=== PATIENT | male | born 1930 | race Caucasian/White ===

== ENCOUNTER 2016-12-30 17:10 | Emergency (ER) | payer OTHER ==
[~2016-12-30] VITALS: Ht 188 cm; Wt 100.0 kg
[~2016-12-30 17:10] MED LIST: ALBU18HF INH; ASCO500T7 PO; ASPI325T32 PO; ATRV10T PO; BECL8.7A6 IH; CALC-721 PO; ERGO400C PO; FELO10TA3 PO; FLUT16SP2 NS; MULT-621 PO; OMEG1CAP5 PO; SILD100T PO; TRIA60LO3 TOP
[2016-12-30 17:36] VITALS: BP 127/75; PULSE 90; RESP 18; O2SAT 97
--- NOTE | 2016-12-30 18:45 | ED.REPORT ---
HPI-Abd Pain M Under 40 Date of Service Dec 30, 2016 ED Provider: Colin Kendrick DO Patient is an 86 year old male with a history of hypertension and a nephrectomy due to cancer who presents to the ED complaining of right upper quadrant abdominal pain. The patient reports a mass on the right side of his abdomen that has been there for a few months. He states that it is usually sore but has got progressively more painful today while mowing the lawn and describes the pain as a "burning". He denies vomiting or diarrhea. The patient reports that he saw his primary care physician earlier who recommended the patient come to the ED for a CT. Nursing Notes Stated Complaint: ABDOMINAL PAIN Chief Complaint: Male Abdominal Pain Nursing Notes Reviewed: Yes Allergies: Coded Allergies: lactose (Verified Adverse Reaction, Intermediate, LACTOSE INTOL, stomach ache, diarrhea, 12/18/13) Uncoded Allergies: Codeine (Allergy, Severe, N & V, 08/06/04) PHOSPHATE (Allergy, Severe, "loose total control of my body", 12/18/13) Sodium Phosphate (Allergy, Unknown, 05/25/04) Scheduled Ascorbic Acid (Vitamin C) 500 Mg Tab.chew 500 MG PO DAILY Aspirin (Aspirin) 325 Mg Tablet.dr 325 MG PO DAILY Atorvastatin (Lipitor) 10 Mg Tab 10 MG PO DAILY Beclomethasone Dipropionate (Qvar) 8.7 Gm Aer.w.adap 2 GM IH BID Calcium Carbonate/Vitamin D3 (Calcium 500 + D Tablet) 1 Each Tablet 1 EACH PO DAILY Cholecalciferol (Vitamin D3) (Vitamin D) 400 Unit Capsule 500 UNIT PO DAILY Felodipine ER (Felodipine ER) 10 Mg Tab.er.24h 10 MG PO DAILY Fluticasone Propionate (Flonase Nasal) 16 Gm [place].susp 1 SPRAY NS DAILY Multivitamin with Minerals (Multiple Vitamin) 1 Each Tablet 1 EACH PO DAILYWM [place]-3 Fatty Acids/Fish Oil (Fish Oil 1,000 mg Capsule) 1 Each Capsule 1 EACH PO DAILY Triamcinolone Acetonide (Triamcinolone Acetonide) 60 Ml Lotion 1 APPLIC TOP BID Scheduled PRN Albuterol Sulfate (Ventolin HFA Inhaler) 200 Puff/18 Gm Inhaler 2 PUFF INH Q4- 6H PRN PRN For Wheezing Sildenafil Citrate (Viagra) 100 Mg Tablet 100 MG PO UD PRN PRN sex General Time Seen by MD: 18:44 Chief Complaint Abdominal pain Hx Obtained From: Patient Arrived By: Walk-in Sudden in Onset?: Yes Onset Occurred: More than a week ago... (2 months) Symptom Duration: Since onset Progression since Onset: Gradually worsening Location: : RUQ Quality: Aching Radiation: : Does not radiate Severity: Current: Moderate Associated with: Denies: Diarrhea, Vomiting Recent Healthcare: No recent hospitalization, Recent doctor visit Similar Sx Previous: Yes Past Medical History Past Medical History 1. Hypertension. 2. Dyslipidemia. 3. Chronic hip and back pain. 4. History of left renal cell cancer, status post laparoscopic assisted nephrectomy in 2004. 5. History of Asthma with recurrent bronchitis in the past. 6. History of diverticulosis with episodes of diverticulitis in the past. 7. BPH 8. 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 Pneumonia Reports: Cancer Past Surgical History Left nephrectomy Shoulder repair Reports: Cholecystectomy, Inguinal hernia repair Family History non-contributory Smoking History Never Smoker Social History Alcohol Use: Denies alcohol use Drug Use: Denies drug use Other Social History: Good social support, Ambulatory Status Independent Review of Systems Constitutional: Denies: Chills Respiratory: Denies: Non-productive cough, Shortness of breath, Wheezing Cardiovascular: Denies: Chest pain GI: Reports: Abdominal pain, Denies: Constipation, Diarrhea, Nausea, Vomiting Complete sys rev & neg: except as marked. Physical Exam Initial Vital Signs Vital Signs (First) Date Time Temp Pulse Resp B/P Pulse Ox O2 Delivery O2 Flow Rate FiO2 12/30/16 17:36 36.2 90 18 127/75 97 12/30/16 20:41 Room Air Initial VS: Reviewed General/Constitutional: Awake, Alert Respiratory / Chest: Atraumatic, Breath sounds NL, Breath sounds = bilat, No respiratory distress Cardiovascular: Heart rate NL, Regular rhythm, Heart sounds NL Abdomen: Atraumatic, Soft Tenderness/Guarding/Rebound: Positive: Tender RUQ..., Tender epigastric Back: Atraumatic, Full range of motion Head / Eyes: Atraumatic, Normocephalic, PERRL, EOMI Neurologic: Oriented X3, Speech NL, No motor deficits, No sensory deficits Skin: Atraumatic, Color NL, No rash, Warm, Dry Psychiatric: Affect NL, Mood NL Interpretation & Diagnostics Lab Results Interpretation Result Diagram: 12/30/16 1900 12/30/16 2020 Test 12/30/16 17:52 12/30/16 19:00 12/30/16 20:20 12/30/16 22:38 Urine Color Yellow (YELLOW) Urine Appearance Clear (CLEAR,HAZY) Urine pH 6.0 (5.0-8.0) Urine Specific [place] 1.005 (1.003-1.035) Urine Protein Negativemg/dL (NEG,TRACE) Urine Glucose (UA) Negativemg/dL (NEGATIVE) Urine Ketones Negativemg/dL (NEGATIVE) Urine Occult Blood Negative (NEGATIVE) Urine Nitrite Negative (NEGATIVE) Urine Bilirubin Negative (NEGATIVE) Urine Urobilinogen Normalmg/dL (NORMAL) Urine Leukocyte Esterase Negative (NEGATIVE) Urine RBC 0-2/hpf (0-2) Urine WBC 0-5/hpf (0-5) Urine Epithelial Cells Occasional/hpf (NONE-MOD) Urine Crystals None seen (NONE SEEN) Urine Bacteria None/hpf (NONE-FEW) Urine Hyaline Casts None/lpf (NONE) Urine Granular Casts None seen (NONE SEEN) Urine Waxy Casts None seen (NONE SEEN) Urine Red Blood Cell Casts None seen (NONE SEEN) Urine White Blood Cell Casts None seen (NONE SEEN) Urine Mucus None seen (None Seen) Urine Trichomonas None seen (NONE SEEN) Urine Yeast None (NONE SEEN) Urinalysis Comment None Urine Culture Reflexed Not indicated Hold Urine Received (Received) White Blood Count 7.7th/mm3 (3.8-10.1) Red Blood Count 4.04mil/mm3 (4.40-5.80) Hemoglobin 13.4g/dL (13.8-17.2) Hematocrit 39.2% (41.0-50.0) Mean Corpuscular Volume 97.0fL (81-100) Mean Corpuscular Hemoglobin 33.2pg (27.0-35.0) Mean Corpuscular Hemoglobin Concent 34.2% (32.0-37.0) Red Cell Distribution Width 13.4% (12.3-15.4) Platelet Count 240bil/L (150-400) Neutrophils (%) (Auto) 69.2% (40-74) Lymphocytes (%) (Auto) 16.3% (14-46) Monocytes (%) (Auto) 9.4% (4-12) Eosinophils (%) (Auto) 4.4% (0-5) Basophils (%) (Auto) 0.4% (0-3) Lactic Acid Level 0.8mmol/L (0.4-2.0) Sodium Level 141mEq/L (134-144) Potassium Level 4.0mEq/L (3.5-5.2) Chloride Level 106mEq/L (97-108) Carbon Dioxide Level 21mmol/L (18-29) Blood Urea Nitrogen 20mg/dL (8-27) Creatinine 1.47mg/dL (0.76-1.27) Estimat Glomerular Filtration Rate 48mL/min (>59) Glucose Level 104mg/dL (60-99) Calcium Level 8.9mg/dL (8.5-10.1) Total Bilirubin 0.5mg/dL (0.0-1.2) Aspartate Amino Transf (AST/SGOT) 16U/L (0-50) Alanine Aminotransferase (ALT/SGPT) 13U/L (0-44) Alkaline Phosphatase 100U/L (25-160) Total Protein 7.1g/dL (6.4-8.4) Albumin 3.9g/dL (3.4-5.0) Lipase 17U/L (13-60) Troponin T < 0.010ug/L (0.0-0.011) ECG Interpretation ECG Interpretation: with LVH unchanged from prior EKG Time: 19:03 Interpreted by: ED physician Normal ECG Interpretation: Normal rate (71), Normal sinus rhythm CT Abd / Pelvis Interpretation IMPRESSION: 1. No discrete intra-abdominal mass identified. 2. Small fluid containing hiatal hernia. 3. No evidence of appendicitis. 3. Postsurgical changes status post left nephrectomy without suspicious mass lesions in the surgical bed. Dictated by: Juan Hernandez M.D. on 12/30/2016 at 22:04 Approved by: Juan Hernandez M.D. on 12/30/2016 at 22:0 Interpretation / Wet Read by: Interpret - Radiologist Re-Eval/Medical Decision Med Decision/Clinical Course Patient's PCP recommended a CT Re-Evaluation/Progress #1: Time of Eval: 22:25 Re-Evaluation/Progress Note: Discussed results of CT. Re-Evaluation/Progress #2: Time of Eval: 23:35 Re-Evaluation/Progress Note: Discussed lab results and plan for discharge. The patient understands and agrees to the plan. All questions were addressed Counseled Regarding: Diagnosis, Lab results, Need for follow-up, When/why to return to ED Patient Discharge & Departure Primary Impression: Abdominal wall pain Disposition: Home Discharge Condition All VS Reviewed: Yes Condition: Stable Patient Instructions: Acute Abdominal Pain (ED) Additional Instructions: Your CT scan did not show any discrete abnormalities. You can take Tramadol every 8 hours for pain. You can also take Prilosec once daily for 7 days to see if that helps with your pain. Follow up with your primary care physician next week. Return to the emergency department if you develop any new or concerning symptoms. Referrals: Balaji Garcia MD (PCP) Camilo Attestation Portions of this note were transcribed by Daisy Morejon. I, Dr. Kendrick personally performed the history, physical exam and medical decision-making; I reviewed and confirmed the accuracy of the information in the transcribed note. Signed by: Camilo Rodriguez, 12/30/16 and [id number] copies to: Balaji Garcia MD, Todd P DO Dec 30, 2016 18:44 Linda Morejon Dec 30, 2016 19:04
[2016-12-30 19:20] LABS: APPEARANCE,URINE CLEAR (CLEAR,HAZY); COLOR,URINE YELLOW (YELLOW); OCCULT BLOOD,URINE NEGATIVE (NEGATIVE); UROBILINOGEN,URINE NORMAL (NORMAL)
[2016-12-30 19:40] LABS: BASOPHILS % (AUTO) 0.4 % (0-3); EOSINOPHILS % (AUTO) 4.4 % (0-5); MONOCYTES % (AUTO) 9.4 % (4-12); Mean Corpuscular Hemoglobin 33.2 pg (27.0-35.0); NEUTROPHILS % (AUTO) 69.2 % (40-74); Platelet Count 240 bil/L (150-400)
[2016-12-30 20:41] VITALS: BP 131/79; PULSE 66; RESP 17; O2SAT 97
[2016-12-30 20:56] LABS: TROPONIN T 0.01 ug/L (0.0-0.011)
[2016-12-30] MEDS: fentaNYL-PF 50 mCg/mL 2 mL Inj IVPUSH PRN ×2 (21:01→22:06)
--- NOTE | 2016-12-30 22:10 | DRSVH ---
PROCEDURE: CT ABDOMEN AND PELVIS WITH CONTRAST ([id number]) INDICATIONS: painful abdominal mass TECHNIQUE: After the administration of oral and intravenous contrast, 5 mm thick sections acquired from the diap hragms to the symphysis. 5 mm thick coronal and sagittal reformats were performed. For radiation do se reduction, the following was used: automated exposure control, adjustment of mA and/or kV accordi ng to patient size. COMPARISON: [facility] [employer], US, US ABDOMEN, 12/22/2016, 9:51. [facility], CT, AB D/PELVIS W/O CON (PNL), 10/04/2014, 17:45. FINDINGS: Image quality: Excellent. ABDOMEN: Lung bases: There are fibrotic changes in the lung bases with reticular interstitial opacities bilat erally. There is also mild peripheral bronchiectasis. Heart size is normal. There is a small fluid filled hiatal hernia. Solid organs: Liver and spleen are normal in size and enhancement. Gallbladder is surgically absent . Biliary system is non-dilated. Pancreas enhances normally. No adrenal nodules. The left kidney is surgically absent. No suspicious mass lesions within the surgical bed. Right kidney demonstrates no hydronephrosis. Peritoneum and bowel: Stomach, small bowel, and colon loops are normal in caliber and wall thickness . The appendix is normal in appearance. There is colonic diverticulosis without acute diverticuliti s. No free fluid or air. Nodes and vessels: No retroperitoneal or mesenteric adenopathy. Aorta and inferior vena cava are no rmal in caliber. Miscellaneous: No ventral hernias. PELVIS: Genitourinary: Bladder wall thickness is normal. There is mild heterogeneous enlargement of the pro state. Miscellaneous: No inguinal adenopathy. There is a small fat containing left inguinal hernia. Bones: No suspicious bony lesions. No vertebral body compression fractures. IMPRESSION: 1. No discrete intra-abdominal mass identified. 2. Small fluid containing hiatal hernia. 3. No evidence of appendicitis. 3. Postsurgical changes status post left nephrectomy without suspicious mass lesions in the surgical bed. Dictated by: Juan Hernandez M.D. on 12/30/2016 at 22:04 Approved by: Juan Hernandez M.D. on 12/30/2016 at 22:08
[2016-12-30 23:44] VITALS: BP 147/81; PULSE 72; RESP 17; O2SAT 98
== END 2016-12-30 23:45 | disposition home or self-care (01) ==
LOC: SED 17:10
DX: R10.11 Right upper quadrant pain (principal); I10 Essential (primary) hypertension; E78.5 Hyperlipidemia, unspecified; J45.909 Unspecified asthma, uncomplicated; M25.559 Pain in unspecified hip; M54.9 Dorsalgia, unspecified; G89.29 Other chronic pain; Z90.5 Acquired absence of kidney; Z85.528 Personal history of other malignant neoplasm of kidney; Z86.73 Personal history of transient ischemic attack (TIA), and cerebral infarction without residual deficits; Z87.19 Personal history of other diseases of the digestive system; Z79.82 Long term (current) use of aspirin; Z88.5 Allergy status to narcotic agent; Z88.8 Allergy status to other drugs, medicaments and biological substances
CPT/HCPCS: 36415; 74177; 80053; 81000; 83605; 83690; 84484; 85025; 93005; 96374; 96376; 99285; J3010; Q9967